=== PATIENT | female | born 1985 ===

== ENCOUNTER 2017-01-26 12:47 | Emergency (ER) | payer SELFPAY ==
[2017-01-26 12:50] VITALS: O2SAT 99; BMI 25.4
[2017-01-26] MEDS ORDERED: Sodium Chloride 0.9% 1,000 ML IV ONE (13:06)
--- NOTE | 2017-01-26 13:09 | C.PDOC ---
History Of Present Illness 31 year old female presents to the ED with complaints of diffuse abdominal pain , heachache, nausea, vomiting and fever since last night. Patient denies any diarrhea, sick contacts, history of medical problems, or any other complaints at this time. Time Seen by Provider: 01/26/17 13:01 Chief Complaint (Nursing): Abdominal Pain History Per: Patient History/Exam Limitations: no limitations Onset/Duration Of Symptoms: Hrs Current Symptoms Are (Timing): Still Present Location Of Pain/Discomfort: Diffuse Quality Of Discomfort: "Pain" Associated Symptoms: Fever, Chills, Nausea, Vomiting, Back Pain. denies: Diarrhea Past Medical History Reviewed: Historical Data, Nursing Documentation, Vital Signs Vital Signs: Last Vital Signs Temp 99.9 F H 01/26/17 12:50 Pulse 117 H 01/26/17 12:50 Resp 22 01/26/17 12:50 BP 112/71 01/26/17 12:50 Pulse Ox 99 01/26/17 13:14 Family History: States: Unknown Family Hx - Social History Hx Alcohol Use: No Hx Substance Use: No - Immunization History Hx Tetanus Toxoid Vaccination: No Hx Influenza Vaccination: No Hx Pneumococcal Vaccination: No Review Of Systems Constitutional: Positive for: Chills, Weakness. Negative for: Fever, Sweats ENT: Negative for: Ear Pain, Nose Pain Gastrointestinal: Positive for: Nausea, Vomiting, Abdominal Pain. Negative for : Diarrhea Physical Exam - Physical Exam Appears: Non-toxic, No Acute Distress Skin: Warm, Dry Head: Normacephalic Eye(s): bilateral: PERRL, EOMI Ear(s): Bilateral: Normal Tongue: Normal Appearing Lips: Normal Appearing Throat: Normal Neck: Normal ROM, Supple Chest: Symmetrical, No Deformity Cardiovascular: Rhythm Regular Respiratory: No Decreased Breath Sounds, No Accessory Muscle Use, No Rales, No Rhonchi, No Stridor, No Wheezing Gastrointestinal/Abdominal: Soft, No Tenderness, No Distention, No Guarding, No Rebound Extremity: Normal ROM, No Tenderness Neurological/Psych: Oriented x3 ED Course And Treatment - Laboratory Results Result Diagrams: 01/26/17 13:55 01/26/17 13:55 Lab Interpretation: No Acute Changes O2 Sat by Pulse Oximetry: 99 Pulse Ox Interpretation: Normal Medical Decision Making Medical Decision Makin y.o female with subjective fever and vague symptoms of malaise, bodyaches, abdominal pain, nausea and dysuria. Patient has no fever in ED and abdominal exam was benign. Labs and urine analysis ordered. Patient treated with IV NS and Toradol. Labs resulted WNL and UA positive for UTI. Upon reevaluation, patient remains afebrile and in no distress. I explained results to patient and plan is to discharge with Rx. Disposition Counseled Patient/Family Regarding: Diagnosis, Need For Followup, Rx Given - Disposition Referrals: [facility] [Outside] [facility] [Outside] Disposition: HOME/ ROUTINE Disposition Time: 15:07 Condition: STABLE Additional Instructions: Receta a [facility] sab[facility] normales. La orina muestra infeccin. Por favor tome antibiticos dos veces al da radha patel semana y bello carrie agua. Telma un seguimiento con guzman mdico o clnica primaria en patel semana para patel evaluacin posterior Prescriptions: Ciprofloxacin [Cipro] 1 tab PO BID #14 tab Instructions: Urinary Tract Infection in Women (DC) Print Language: HUNGARIAN - POA Present On Arrival: None - Clinical Impression Clinical Impression: UTI (urinary tract infection) - Scribe Statement The provider has reviewed the documentation as recorded by the Scribe Paty Retana All medical record entries made by the Scribe were at my direction and personally dictated by me. I have reviewed the chart and agree that the record accurately reflects my personal performance of the history, physical exam, medical decision making, and the department course for this patient. I have also personally directed, reviewed, and agree with the discharge instructions and disposition.
[2017-01-26] MEDS ORDERED: Sodium Chloride 0.9% 1,000 ML ONE (13:43)
[2017-01-26 14:08] LABS: BASO % 0.2 % (0.0-2.0); HEMATOCRIT 36.4 % (34.0-47.0); LYMPH # 1.4 K/uL (1.0-4.3); LYMPH % 12.8 % (20.0-40.0); MEAN CELL VOLUME 85.4 fL (81.0-99.0); MEAN CORPUSCULAR HEMOGLOBIN 28.5 pg (27.0-31.0); MEAN CORPUSCULAR HGB CONC 33.4 g/dL (33.0-37.0); MEAN PLATELET VOLUME 7.6 fL (7.2-11.7); MONO # 1.6 K/uL (0.0-0.8); MONO % 15.1 % (0.0-10.0); RED CELL DISTRIBUTION WIDTH 12.5 % (11.5-14.5); WHITE BLOOD COUNT 10.9 K/uL (4.8-10.8)
[2017-01-26 14:14] LABS: CHLORIDE 98 mmol/L (98-107); POTASSIUM 3.4 mmol/L (3.6-5.2); SODIUM 136 mmol/L (132-148)
[2017-01-26 14:16] LABS: BILIRUBIN,TOTAL 0.7 mg/dL (0.2-1.3); GFR AFRICAN-AMERICAN > 60
[2017-01-26 14:17] LABS: ALB/GLOB RATIO 1.4 (1.0-2.1); ALKALINE PHOSPHATASE 42 U/L (38-126); ALT/SGPT 17 U/L (9-52); AST/SGOT 20 U/L (14-36); BLOOD UREA NITROGEN 9 mg/dL (7-17); CARBON DIOXIDE 23 mmol/L (22-30); GLUCOSE,RANDOM 113 mg/dL (65-105); TOTAL PROTEIN 7.3 g/dL (6.3-8.3)
[2017-01-26 14:18] LABS: CALCIUM 8.6 mg/dl (8.6-10.4)
[2017-01-26 14:57] LABS: RBC URINE 2 /hpf (0-3); URINE BACTERIA RARE (<OCC); URINE BILIRUBIN NEGATIVE (NEGATIVE); URINE BLOOD NEGATIVE (NEGATIVE); URINE COLOR Yellow (YELLOW); URINE GLUCOSE (UA) NORMAL (Normal); URINE KETONE NEGATIVE (NEGATIVE); URINE LEUKOCYTE ESTERASE 2+ Leu/uL (Negative); URINE PROTEIN NEGATIVE (NEGATIVE); URINE UROBILINOGEN NORMAL mg/dL (0.2-1.0); WBC URINE 24 /hpf (0-5)
[2017-01-26 15:38] VITALS: BP 97/62; PULSE 86; RESP 20; TEMP 98.1
== END 2017-01-26 15:36 | disposition home or self-care (01) ==
LOC: C.ER 12:47
DX: N39.0 Urinary tract infection, site not specified (principal)
CPT/HCPCS: 80053; 81001; 84703; 85025; 87086; 87804; 96361; 96374; 96375; 99285; J1885; J2405; J7040

== ENCOUNTER 2017-09-20 09:17 | Emergency (ER) | payer OTHER ==
[2017-09-20 09:18] VITALS: BMI 25.4
[2017-09-20 09:35] VITALS: TEMP 98.1; O2SAT 98
--- NOTE | 2017-09-20 10:19 | C.PDOC ---
History Of Present Illness 31 year old female presents to ED for evaluation of nausea, suprapubic abdominal pain, dysuria, headache, and subjective fever for the past 3 days. Patient also complaints of epigastric abdominal pain that is worse after eating. Denies vomiting, diarrhea, hematuria, frequency, dizziness, or any other complaints. Time Seen by Provider: 09/20/17 09:56 Chief Complaint (Nursing): Headache History Per: Patient History/Exam Limitations: no limitations Onset/Duration Of Symptoms: Days (3) Current Symptoms Are (Timing): Still Present Quality: "Pain" Preceeding Symptoms: denies: Visual Disturbances, Known Migraine Symptoms Associated Symptoms: Nausea. denies: Photophobia, Blurred Vision, Vomiting Additional History Per: Patient Past Medical History Reviewed: Historical Data, Nursing Documentation, Vital Signs Vital Signs: Last Vital Signs Temp 98.1 F 09/20/17 09:33 Pulse 64 09/20/17 11:20 Resp 18 09/20/17 11:20 BP 106/72 09/20/17 11:20 Pulse Ox 98 09/20/17 11:20 - Medical History PMH: No Chronic Diseases Family History: States: Unknown Family Hx - Social History Hx Alcohol Use: No Hx Substance Use: No - Immunization History Hx Tetanus Toxoid Vaccination: No Hx Influenza Vaccination: No Hx Pneumococcal Vaccination: No Review Of Systems Except As Marked, All Systems Reviewed And Found Negative. Constitutional: Positive for: Fever Gastrointestinal: Positive for: Nausea, Abdominal Pain. Negative for: Vomiting , Diarrhea Genitourinary: Positive for: Dysuria. Negative for: Hematuria Musculoskeletal: Negative for: Back Pain Neurological: Positive for: Headache. Negative for: Weakness, Numbness, Dizziness Physical Exam - Physical Exam Appears: Non-toxic, No Acute Distress Skin: Normal Color, Warm, Dry Head: Atraumatic, Normacephalic Eye(s): bilateral: Normal Inspection Oral Mucosa: Moist Neck: Normal ROM, Supple Chest: Symmetrical Cardiovascular: Rhythm Regular, No Murmur Respiratory: Normal Breath Sounds, No Rales, No Rhonchi, No Wheezing Gastrointestinal/Abdominal: Soft, Tenderness (mild epigastric), No Guarding, No Rebound Back: No CVA Tenderness Extremity: Normal ROM Neurological/Psych: Oriented x3, Normal Speech ED Course And Treatment O2 Sat by Pulse Oximetry: 98 Pulse Ox Interpretation: Normal Medical Decision Making Medical Decision Making: Plan: * Influenza AB * Urinalysis * Pepcid, Tylenol Patient remained afebrile alert and oriented with stable vital signs during ER evaluation. On re-examination, patient is resting comfortably in no acute distress. Patient given follow up instructions. Instructed to return to ER if symptoms worsen or new symptoms arise. Disposition Counseled Patient/Family Regarding: Need For Followup, Rx Given - Disposition Referrals: [facility] [Outside] [facility] [Outside] Disposition: HOME/ ROUTINE Disposition Time: 11:06 Condition: STABLE Additional Instructions: Vaya a guzman mdico o la clnica en 2-5 carcamo sin falta, para mas evaluacin. [place] los medicamentos mitch indicado. Volver a la kenyatta de emergencia en cualquier momento si los sntomas persisten o empeoran. Prescriptions: Sulfamethoxazole/Trimethoprim [Bactrim DS 800 mg-160 mg] 1 tab PO BID #14 tab Instructions: Urinary Tract Infection in Women (DC) Forms: [employer] ([place] Islander) Print Language: PRYDEINIG - POA Present On Arrival: None - Clinical Impression Clinical Impression: UTI (urinary tract infection) - PA / PALLIATIVE CARE NURSE / Resident Statement MD/DO has reviewed & agrees with the documentation as recorded. - Scribe Statement The provider has reviewed the documentation as recorded by the Nathanibtiffanie Lobo All medical record entries made by the Nathanibtiffanie were at my direction and personally dictated by me. I have reviewed the chart and agree that the record accurately reflects my personal performance of the history, physical exam, medical decision making, and the department course for this patient. I have also personally directed, reviewed, and agree with the discharge instructions and disposition.
[2017-09-20 10:33] LABS: RBC URINE 9 /hpf (0-3); URINE BACTERIA FEW (<OCC); URINE BILIRUBIN NEGATIVE (NEGATIVE); URINE BLOOD 1+ (NEGATIVE); URINE COLOR Yellow (YELLOW); URINE GLUCOSE (UA) NORMAL (Normal); URINE KETONE NEGATIVE (NEGATIVE); URINE LEUKOCYTE ESTERASE 1+ Leu/uL (Negative); URINE PROTEIN NEGATIVE (NEGATIVE); URINE UROBILINOGEN NORMAL mg/dL (0.2-1.0); WBC URINE 10 /hpf (0-5)
[2017-09-20 11:21] VITALS: BP 106/72; PULSE 64; RESP 18
== END 2017-09-20 11:20 | disposition home or self-care (01) ==
LOC: C.ER 09:17
DX: N39.0 Urinary tract infection, site not specified (principal)

== ENCOUNTER 2018-01-25 08:21 | Emergency (ER) | payer OTHER ==
[2018-01-25] MEDS ORDERED: Lidocaine 5% Patch TD STA (08:37)
[2018-01-25 08:39] VITALS: RESP 16
--- NOTE | 2018-01-25 08:50 | C.PDOC ---
History Of Present Illness Patient is a 32 yr old female who states that prior to arrival she slipped in the shower and her right lower back struck a chair. She did not hit her head. She complains of pain to the right lower back--at the point of contact. She did not take any medication prior to arrival. Patient states that on a 1-10 scale, the pain is a 10. Patient states that she is not . PMD: None . Time Seen by Provider: 01/25/18 08:22 Chief Complaint (Nursing): Back Pain History Per: Patient Onset/Duration Of Symptoms: Mins Past Medical History Reviewed: Historical Data, Nursing Documentation, Vital Signs Vital Signs: Last Vital Signs Temp 98 F 01/25/18 10:59 Pulse 88 01/25/18 10:59 Resp 16 01/25/18 10:59 BP 109/70 01/25/18 10:59 Pulse Ox 100 01/25/18 10:59 - Medical History PMH: No Chronic Diseases Family History: States: No Known Family Hx - Social History Hx Tobacco Use: No Hx Alcohol Use: Yes (Occasional) Hx Substance Use: No - Immunization History Hx Tetanus Toxoid Vaccination: No Hx Influenza Vaccination: No Hx Pneumococcal Vaccination: No Review Of Systems Except As Marked, All Systems Reviewed And Found Negative. Cardiovascular: Negative for: Chest Pain Respiratory: Negative for: Shortness of Breath Gastrointestinal: Negative for: Nausea, Vomiting, Abdominal Pain Musculoskeletal: Positive for: Back Pain Neurological: Negative for: Weakness Physical Exam - Physical Exam Appears: Other (Patient appears to be in pain; pt is crying) Skin: Warm, Dry Head: Atraumatic Eye(s): bilateral: Normal Inspection, EOMI Ear(s): Bilateral: Normal Nose: Normal Oral Mucosa: Moist Tongue: Normal Appearing Lips: Normal Appearing Teeth: Normal Dentition Throat: Normal Neck: Normal, No Midline Cervical Tenderness Lymphatic: Deferred Chest: Symmetrical Cardiovascular: Rhythm Regular Respiratory: Normal Breath Sounds, No Rales, No Rhonchi, No Wheezing Gastrointestinal/Abdominal: Normal Exam, Bowel Sounds, Soft, No Tenderness, No Guarding, No Rebound Rectal: Deferred Back: Other ((+) significant tenderness to the right lumbar muscle region ( directly over the muscle itself--lumbar erector spinae region); no bony tenderness and no hip/pelvis bony tenderness) Extremity: Normal ROM Extremity: Left: Hips Non-Tender, Right: Hips Non-Tender, Bilateral: Atraumatic Neurological/Psych: Oriented x3, Normal Motor, Normal Sensation ED Course And Treatment O2 Sat by Pulse Oximetry: 98 Medical Decision Making Medical Decision Making: Initial Impression: Lumbar muscle contusion with pain Initial Pain: Will give pain medication Patient states that her pain has gone from a "10" to a "5" and that she feels much better. Pt is able to walk. Also w/ UTI on UA (explaining elevated temperature). Will d/c home. / Disposition - Disposition Referrals: [facility] [Outside] Disposition: HOME/ ROUTINE Disposition Time: 10:37 Condition: IMPROVED Prescriptions: Acetaminophen [Tylenol 325mg tab] 3 tab PO Q6 PRN #30 tab PRN Reason: Pain, Mild (1-3) Cephalexin [cephalexin] 1 tab PO BID #14 cap Ibuprofen [Motrin] 1 tab PO Q8 PRN #30 tab PRN Reason: Pain, Moderate (4-7) Lidocaine 5% [Lidoderm] 1 ea TD Q12 #10 patch Instructions: Urinary Tract Infections in Adults, Contusion (DC) Forms: Gen Discharge Inst Turkmen Print Language: CZECH - Clinical Impression Clinical Impression: Lumbar contusion, UTI (urinary tract infection)
[2018-01-25] MEDS ORDERED: Lidocaine 5% Patch TD ONE (08:54)
[2018-01-25 09:30] LABS: HCG,QUALITATIVE URINE NEGATIVE (NEGATIVE)
[2018-01-25 09:37] LABS: SQUAMOUS EPITHIAL 5 /hpf (0-5); URINE BACTERIA MANY (<OCC); URINE BILIRUBIN NEGATIVE (NEGATIVE); URINE BLOOD NEGATIVE (NEGATIVE); URINE CLARITY Hazy (Clear); URINE COLOR Yellow (YELLOW); URINE GLUCOSE (UA) NORMAL (Normal); URINE LEUKOCYTE ESTERASE 1+ Leu/uL (Negative); URINE PROTEIN NEGATIVE (NEGATIVE); URINE UROBILINOGEN NORMAL mg/dL (0.2-1.0)
[2018-01-25 11:00] VITALS: BP 109/70; PULSE 88; TEMP 98
[2018-01-25 16:45] VITALS: O2SAT 98
== END 2018-01-25 10:59 | disposition home or self-care (01) ==
LOC: C.ER 08:21 → MERGE 08:21 → C.ER 10:59
DX: N39.0 Urinary tract infection, site not specified (principal); S30.0XXA Contusion of lower back and pelvis, initial encounter; W18.2XXA Fall in (into) shower or empty bathtub, initial encounter; Y93.E1 Activity, personal bathing and showering; Y92.002 Bathroom of unspecified non-institutional (private) residence as the place of occurrence of the external cause
CPT/HCPCS: 81001; 84703; 96372; 99284; J1885

== ENCOUNTER 2018-08-08 09:26 | Emergency (ER) | payer OTHER ==
[2018-08-08 09:27] VITALS: BMI 25.4
[2018-08-08 09:32] VITALS: BP 120/73; PULSE 72; RESP 16; TEMP 97.8; O2SAT 99
--- NOTE | 2018-08-08 10:06 | C.PDOC ---
History Of Present Illness 32 y/o female presents to ED with c/o right upper 2nd molar pain for 3 days. Patient has not seen dentist for pain and denies facial swelling, active bleeding, fever, chills or any other complaints at this time. Time Seen by Provider: 08/08/18 09:40 Chief Complaint (Nursing): Dental Pain History Per: Patient History/Exam Limitations: no limitations Onset/Duration Of Symptoms: Days Current Symptoms Are (Timing): Still Present Past Medical History Reviewed: Historical Data, Nursing Documentation, Vital Signs Vital Signs: Last Vital Signs Temp 97.8 F 08/08/18 09:32 Pulse 72 08/08/18 09:32 Resp 16 08/08/18 09:32 BP 120/73 08/08/18 09:32 Pulse Ox 99 08/08/18 09:32 - Medical History PMH: No Chronic Diseases Surgical History: No Surg Hx Family History: States: No Known Family Hx - Social History Hx Tobacco Use: No Hx Alcohol Use: No Hx Substance Use: No - Immunization History Hx Tetanus Toxoid Vaccination: No Hx Influenza Vaccination: No Hx Pneumococcal Vaccination: No Review Of Systems Constitutional: Negative for: Fever, Chills ENT: Positive for: Mouth Pain (tooth). Negative for: Mouth Swelling, Throat Pain, Throat Swelling Respiratory: Negative for: Cough Gastrointestinal: Negative for: Nausea, Vomiting Physical Exam - Physical Exam Appears: Non-toxic, No Acute Distress Skin: Warm, Dry, No Rash Head: Atraumatic, Normacephalic Eye(s): bilateral: Normal Inspection Oral Mucosa: Moist Teeth: Tender To Palpation, Other (right upper 2nd molar cavity noted) Gingiva: Normal Appearing, No Erythema, No Swelling, No Bleeding, No Abscess Throat: Normal, No Erythema, No Exudate Neurological/Psych: Oriented x3, Normal Speech, Normal Cognition ED Course And Treatment O2 Sat by Pulse Oximetry: 99 (RA) Pulse Ox Interpretation: Normal Progress Note: Penicillin and Ibuprofen administered. Patient discharged with follow up to Dentist in 1-2 days. Disposition - Disposition Referrals: [facility] [Outside] Disposition: HOME/ ROUTINE Disposition Time: 10:58 Condition: STABLE Additional Instructions: Follow up with PMD and Dentist within 1-2 days. Return to ED if feel worse. Prescriptions: Ibuprofen [Motrin Tab] 600 mg PO Q8 #30 tab Penicillin VK [Penicillin VK Tab] 500 mg PO Q6 #28 tab Instructions: Dental Pain (DC) Forms: [employer] (Latvian)[facility] Print Language: KITTITIAN - Clinical Impression Clinical Impression: Dental caries - PA / TOOL KEEPER / Resident Statement MD/DO has reviewed & agrees with the documentation as recorded. - Scribe Statement The provider has reviewed the documentation as recorded by the Dima Romero All medical record entries made by the Dima were at my direction and personally dictated by me. I have reviewed the chart and agree that the record accurately reflects my personal performance of the history, physical exam, medical decision making, and the department course for this patient. I have also personally directed, reviewed, and agree with the discharge instructions and disposition.
== END 2018-08-08 11:36 | disposition home or self-care (01) ==
LOC: C.ER 09:26
DX: K02.9 Dental caries, unspecified (principal)